=== PATIENT | female | born 1955 | race Caucasian/White ===

== ENCOUNTER 2017-02-14 07:45 | Emergency (ER) | payer OTHER ==
[~2017-02-14] VITALS: Wt 71.0 kg
[~2017-02-14 07:45] MED LIST: LEVO750T25 PO; MELO-109 PO; METR500T PO
[2017-02-14 08:25] LABS: URINE BLOOD (Dip) POC 2+ (NEGATIVE)
[2017-02-14] MEDS ORDERED: KETOROLAC 30 MG INJ IV STA (09:07)
[2017-02-14 09:11] LABS: ADD UMIC YES; URINE BILIRUBIN (Dip) NEGATIVE (NEGATIVE); URINE BLOOD (Dip) 2+ (NEGATIVE); URINE COLOR LT. YELLOW (YELLOW); URINE GLUCOSE (Dip) NEGATIVE (NEGATIVE); URINE KETONES (Dip) NEGATIVE (NEGATIVE); URINE LEUKOCYTE ESTERASE (Dip) 3+ (NEGATIVE); URINE NITRITE (Dip) NEGATIVE (NEGATIVE); URINE TOTAL PROTEIN (Dip) NEGATIVE (NEGATIVE); URINE UROBILINOGEN (Dip) 0.2 E.U./dL (0.1-1.0)
[2017-02-14 09:32] LABS: BACTERIA,URINE FEW
[2017-02-14 09:37] LABS: ADD SCAN DIFF NO
[2017-02-14 09:43] LABS: BASOPHILS % 0.4 % (0.0-2.0); EOSINOPHILS # 0.1 10^3/ul (0.0-0.5); EOSINOPHILS % 1.2 % (0.0-7.0); HEMATOCRIT 41.9 % (37.0-47.0); HEMOGLOBIN 13.7 g/dl (12.0-16.0); LYMPHOCYTES # 2.1 10^3/ul (0.8-2.9); LYMPHOCYTES % 23.2 % (15.0-51.0); MEAN CORPUSCULAR HEMOGLOBIN 28.4 pg (29.0-33.0); MEAN CORPUSCULAR HGB CONC 32.7 g/dl (32.0-37.0); MEAN CORPUSCULAR VOLUME 86.9 fl (82.0-101.0); MEAN PLATELET VOLUME 9.9 fl (7.4-10.4); MONOCYTE # 0.5 10^3/ul (0.3-0.9); MONOCYTES % 5.7 % (0.0-11.0); NEUTROPHIL # 6.4 10^3/ul (1.6-7.5); NEUTROPHILS % 69.2 % (39.0-77.0); PLATELET COUNT 285 10^3/UL (140-415); RED BLOOD COUNT 4.82 10^6/ul (4.20-5.40); RED CELL DISTRIBUTION WIDTH 12.4 % (11.5-14.5); WHITE BLOOD COUNT 9.2 10^3/ul (4.8-10.8)
[2017-02-14 09:53] LABS: ALBUMIN 4.6 g/dl (3.3-4.9)
[2017-02-14 09:54] LABS: POTASSIUM 3.9 mmol/L (3.5-5.1)
[2017-02-14 09:56] LABS: ALBUMIN/GLOBULIN RATIO 1.31; BILIRUBIN,INDIRECT 0.7 mg/dl (0-1.1); BILIRUBIN,TOTAL 0.7 mg/dl (0.2-1.3); CALCIUM 9.4 mg/dl (8.4-10.2); CREATININE 0.71 mg/dl (0.44-1.00); TOTAL PROTEIN 8.1 g/dl (6.1-8.1)
--- NOTE | 2017-02-14 10:41 | RADRPT ---
PROCEDURE: Retroperitoneal US. CLINICAL INDICATION: Flank pain TECHNIQUE: Multiple sonographic images of the kidneys and retroperitoneum were obtained. The imag es were reviewed on a PACS workstation. COMPARISON: 02/07/2016 FINDINGS: The kidneys are normal in size, contour, cortical thickness and cortical echogenicity. The right kidney measures 10.1 cm. The left kidney measures 10.3 cm. No kidney stones are visualized. There is no evidence for hydronephrosis. The urinary bladder is normal. RPTAT: AA IMPRESSION: Unremarkable retroperitoneal ultrasound. .Lex Tena MD, Date Time Electronically viewed and signed by .Lex Tena MD, MD on 02/14/2017 10:41 .S/
[2017-02-14] MEDS ORDERED: CEPH-443 PO (10:53)
[2017-02-14] MEDS ORDERED: IBUP400T22 PO (10:53)
[2017-02-14 10:55] VITALS: BP 143/81; PULSE 64; RESP 20; TEMP 97.9
--- NOTE | 2017-02-14 10:59 | ERD ---
ER Documentation Chief Complaint Date/Time DATE: 02/14/17 TIME: 10:55 Chief Complaint DYSURIA X 3 DAYS, LEFT FLANK PAIN HPI 61-year-old female patient with a past medical history of nephrolithiasis presents to the ED complaining of dysuria that started 3 days ago. States that it feels like a burning sensation when she urinates. Reports that she has some slight suprapubic pain. States that she also has associated left flank pain. States that she was diagnosed with nephrolithiasis a few years ago. Denies any chest pain, shortness of breath, abdominal pain, nausea, vomiting, constipation , diarrhea. Denies any heavy lifting. Denies any saddle anesthesia, urine or bowel incontinence, numbness and tingling. ROS All systems reviewed and are negative except as per history of present illness. Medications Home Meds Active Scripts Ibuprofen* (Motrin*) 400 Mg Tab, 400 MG PO Q6, #30 TAB take with food Prov:KRISTA VENTURA PA-C 02/14/17 Cephalexin* (Keflex*) 500 Mg Capsule, 500 MG PO QID for 7 Days, CAP Prov:KRISTA VENTURA PA-C 02/14/17 Meloxicam* (Meloxicam*) 7.5 Mg Tablet, 7.5 MG PO DAILY, #30 TAB Prov:CLAY REYES PA-C 03/07/16 Metronidazole* (Flagyl*) 500 Mg Tablet, 500 MG PO TID for 10 Days, TAB Prov:LIDA SOLOMON 02/07/16 Levofloxacin* (Levaquin*) 750 Mg Tablet, 750 MG PO DAILY for 10 Days, TAB Prov:LIDA SOLOMON 02/07/16 Allergies Allergies: Coded Allergies: No Known Allergy (Unverified , 03/07/16) PMhx/Soc History of Surgery: Yes (c/section x 2) Anesthesia Reaction: No Hx Neurological Disorder: No Hx Respiratory Disorders: No Hx Cardiac Disorders: No Hx Psychiatric Problems: No Hx Miscellaneous Medical Probl: Yes (HX KIDNEY STONE- 2010, RENAL CYST DX 2012 - NO TREATMENT) Hx Alcohol Use: No Hx Substance Use: No Hx Tobacco Use: No Physical Exam Vitals Vital Signs Date Time Temp Pulse Resp B/P Pulse Ox O2 Delivery O2 Flow Rate FiO2 02/14/17 10:55 97.9 64 20 143/81 99 Room Air 02/14/17 07:47 98.0 67 18 147/77 99 Physical Exam Const: Onu-[id number], well-nourished. In no acute distress. Head: Atraumatic, normocephalic Eyes: Normal Conjunctiva without injection. No purulent discharge. ENT: Normal external ear, nose. Moist oropharynx without tonsillar exudates. Non -erythematous pharynx. Uvula midline. No drooling. No trismus. Neck: No cervical midline tenderness. Full range of motion. No meningismus. No cervical lymphadenopathy. No JVD. Resp: Clear to auscultation bilaterally. No wheezing, rhonchi, rales, or crackles. No accessory muscle use. No retractions. Cardio: Regular rate and rhythm. No murmurs, rubs or gallops. Abd: Soft, nontender, non distended. Normal bowel sounds. No palpable masses. No rebound tenderness. No guarding. Negative McBurney's point. Negative psoas sign. Negative obturator sign. : See exam in MDM. Skin: No petechiae or rashes Back: No midline tenderness. Left CVA tenderness. Ext: No cyanosis, or edema. Neur: Awake and alert. Normal gait. Normal coordination. Psych: Normal Mood and Affect Result Diagram: 02/14/1715 02/14/17 0915 Results 24 hrs Laboratory Tests Test 02/14/17 08:25 02/14/17 08:26 02/14/17 09:15 Bedside Urine pH (LAB) 5.5 Bedside Urine Protein (LAB) Negative Bedside Urine Glucose (UA) Negative Bedside Urine Ketones (LAB) Negative Bedside Urine Blood 2+ Bedside Urine Nitrite (LAB) Negative Bedside Urine Leukocyte Esterase (L 2+ Urine Color LT. YELLOW Urine Clarity CLEAR Urine pH 6.0 Urine Specific Line [place] <=1.005 Urine Ketones NEGATIVE Urine Nitrite NEGATIVE Urine Bilirubin NEGATIVE Urine Urobilinogen 0.2 E.U./dL Urine Leukocyte Esterase 3+ Urine Microscopic RBC 2-5/HPF Urine Microscopic WBC 25-50/HPF Urine Epithelial Cells OCCASIONAL Urine Bacteria FEW Urine Hemoglobin 2+ Urine Glucose NEGATIVE% Urine Total Protein NEGATIVE White Blood Count 9.210^3/ul Red Blood Count 4.8210^6/ul Hemoglobin 13.7g/dl Hematocrit 41.9% Mean Corpuscular Volume 86.9fl Mean Corpuscular Hemoglobin 28.4pg Mean Corpuscular Hemoglobin Concent 32.7g/dl Red Cell Distribution Width 12.4% Platelet Count 41757^3/UL Mean Platelet Volume 9.9fl Neutrophils % 69.2% Lymphocytes % 23.2% Monocytes % 5.7% Eosinophils % 1.2% Basophils % 0.4% Nucleated Red Blood Cells % 0.0/100WBC Neutrophils # 6.410^3/ul Lymphocytes # 2.110^3/ul Monocytes # 0.510^3/ul Eosinophils # 0.110^3/ul Basophils # 0.010^3/ul Nucleated Red Blood Cells # 0.010^3/ul Sodium Level 141mmol/L Potassium Level 3.9mmol/L Chloride Level 101mmol/L Carbon Dioxide Level 27mmol/L Anion Gap 17 Blood Urea Nitrogen 12mg/dl Creatinine 0.71mg/dl Glucose Level 95mg/dl Calcium Level 9.4mg/dl Total Bilirubin 0.7mg/dl Direct Bilirubin 0.00mg/dl Indirect Bilirubin 0.7mg/dl Aspartate Amino Transf (AST/SGOT) 25IU/L Alanine Aminotransferase (ALT/SGPT) 30IU/L Alkaline Phosphatase 63IU/L Total Protein 8.1g/dl Albumin 4.6g/dl Globulin 3.50g/dl Albumin/Globulin Ratio 1.31 Lipase 124U/L Current Medications Medications (Trade) Dose Ordered Sig/Leslie Route PRN Reason Start Time Stop Time Status Last Admin Dose Admin Ketorolac Tromethamine (Toradol) 30 mg ONCE STAT IV 02/14/17 09:07 02/14/17 09:10 DC 02/14/17 09:17 Procedures/[facility] This is a 61-year-old female patient with no significant past medical history presents the ED complaining of left flank pain and dysuria that started 3 days ago. Patient is afebrile and nontoxic-appearing. Patient has normal vital signs. Based on patient's history of nephrolithiasis, a renal ultrasound, CBC, CMP, lipase, UA, urine culture was ordered to further evaluate patient. Patient 's pain was improved after Toradol 30 mg IV. CBC: No leukocytosis. No e/o of systemic infection. No e/o anemia. CMP: No e/o severe acidosis, alkalosis, renal failure, diabetic ketoacidosis, liver disease Lipase within normal limits. Urine: 3+ leukocyte esterase with WBC 25-50, no nitrites, no hematuria. PROCEDURE: Retroperitoneal US. CLINICAL INDICATION: Flank pain TECHNIQUE: Multiple sonographic images of the kidneys and retroperitoneum were obtained. The images were reviewed on a PACS workstation. COMPARISON: 02/07/2016 FINDINGS: The kidneys are normal in size, contour, cortical thickness and cortical echogenicity. The right kidney measures 10.1 cm. The left kidney measures 10.3 cm. No kidney stones are visualized. There is no evidence for hydronephrosis. The urinary bladder is normal. RPTAT: AA IMPRESSION: Unremarkable retroperitoneal ultrasound. Patient likely has a urinary tract infection. Low suspicion for septic renal stone, gastritis, GERD, peptic ulcer disease, cholecystitis, choledocholithiasis , cholangitis, pancreatitis, appendicitis, bowel obstruction, ileus, volvulus, nephrolithiasis, pyelonephritis, hepatitis, perforated viscus, diverticulitis, abdominal hernia, acute abdomen, mesenteric ischemia or other emergent conditions. Discharge medications: Ibuprofen, Keflex Follow up with primary care physician in 1-2 days. Instructed patient to return to the ED sooner for any worsening symptoms. Patient's questions were answered. Patient understood and agreed with discharge plan. Patient discharged stable. Departure Diagnosis: Primary Impression: Dysuria Condition: Stable Patient Instructions: Dysuria, Urinary Tract Infections in Women Referrals: ESE ARBOLEDA MD (PCP) [facility] YOU HAVE RECEIVED A MEDICAL SCREENING EXAM AND THE RESULTS INDICATE THAT YOU DO NOT HAVE A CONDITION THAT REQUIRES URGENT TREATMENT IN THE EMERGENCY DEPARTMENT. FURTHER EVALUATION AND TREATMENT OF YOUR CONDITION CAN WAIT UNTIL YOU ARE SEEN IN YOUR DOCTORS OFFICE WITHIN THE NEXT 1-2 DAYS. IT IS YOUR RESPONSIBILITY TO MAKE AN APPOINTMENT FOR FOLOW-UP CARE. IF YOU HAVE A PRIMARY DOCTOR --you should call your primary doctor and schedule an appointment IF YOU DO NOT HAVE A PRIMARY DOCTOR YOU CAN CALL OUR PHYSICIAN REFERRAL HOTLINE AT IF YOU CAN NOT AFFORD TO SEE A PHYSICIAN YOU CAN CHOSE FROM THE FOLLOWING [facility] [address] [facility]. [facility] [address] [facility]. [facility] [address] [facility] [facility] [address] [facility] [address] [facility]. [facility] [address] [facility]. [facility] YOU HAVE RECEIVED A MEDICAL SCREENING EXAM AND THE RESULTS INDICATE THAT YOU DO NOT HAVE A CONDITION THAT REQUIRES URGENT TREATMENT IN THE EMERGENCY DEPARTMENT. FURTHER EVALUATION AND TREATMENT OF YOUR CONDITION CAN WAIT UNTIL YOU ARE SEEN IN YOUR DOCTORS OFFICE WITHIN THE NEXT 1-2 DAYS. IT IS YOUR RESPONSIBILITY TO MAKE AN APPOINTMENT FOR FOLOW-UP CARE. IF YOU HAVE A PRIMARY DOCTOR --you should call your primary doctor and schedule and appointment IF YOU DO NOT HAVE A PRIMARY DOCTOR YOU CAN CALL OUR PHYSICIAN REFERRAL HOTLINE AT . IF YOU CAN NOT AFFORD TO SEE A PHYSICIAN YOU CAN CHOSE FROM THE FOLLOWING [facility] INSTITUTIONS: [facility] [address] [place] [address] [facility] [address] [place] [address] [facility] [address] [place] [address] [facility] URGENT CARE/SPECIALTIES Additional Instructions: Call your primary care doctor for an appointment during the next 2-3 days.See the doctor sooner or return here if your condition worsens before your appointment time. KRISTA VENTURA PA-C Feb 14, 2017 10:59 Additional Instructions: Call your primary care doctor for an appointment during the next 2-3 days.See the doctor sooner or return here if your condition worsens before your appointment time. KRISTA VENTURA PA-C Feb 14, 2017 10:59
== END 2017-02-14 11:00 | disposition home or self-care (01) ==
LOC: FTE 07:45
DX: R30.0 Dysuria (principal)
CPT/HCPCS: 36415; 76775; 80053; 81001; 83690; 85025; 87086; 96374; J1885; Z7502; 81003

== ENCOUNTER 2017-06-07 14:38 | Emergency (ER) | payer OTHER ==
[~2017-06-07] VITALS: Ht 165.1 cm; Wt 80.5 kg
[~2017-06-07 14:38] MED LIST changes: +CEPH-443 PO; +IBUP400T22 PO
[2017-06-07 14:44] VITALS: Ht 165.1 cm; Wt 80.5 kg
[2017-06-07] MEDS ORDERED: KETOROLAC 60 MG INJ IM STA (15:20)
[2017-06-07] MEDS ORDERED: morphine 10 MG INJ IM ONE (15:30)
[2017-06-07] MEDS ORDERED: HYDR-906 PO (16:20)
[2017-06-07] MEDS ORDERED: NAPR-688 PO (16:20)
[2017-06-07] MEDS ORDERED: ORPH100T PO (16:20)
--- NOTE | 2017-06-07 17:06 | ERD ---
ER Documentation Chief Complaint Date/Time DATE: 06/07/17 TIME: 17:02 Chief Complaint complains of back pain x 3 days HPI This 61-year-old female presents for left lower back pain for last 3 days. She woke with the pain. Hurts most when she has certain movements such as bending over. She has no new trauma. She denies dysuria, fever, chills. She is otherwise healthy. ROS All systems reviewed and are negative except as per history of present illness. Medications Home Meds Active Scripts Hydrocodone/Acetaminophen ([place] 5-325 Tablet) 1 Each Tablet, 1 EACH PO Q6, #20 TAB Prov:GIOVANI RAYGZOA DO 06/07/17 Naproxen* (Naproxen*) 500 Mg Tablet, 500 MG PO BID, #20 TAB Prov:GIOVANI RAYGOZA DO 06/07/17 Orphenadrine Citrate (Norflex) 100 Mg Tablet.sa, 100 MG PO BID for MUSCLE SPASMS , #14 TAB.SA Prov:IDALMISGIOVANISHAVON GARZON 06/07/17 Ibuprofen* (Motrin*) 400 Mg Tab, 400 MG PO Q6, #30 TAB take with food Prov:KRISTA VENTURA PA-C 02/14/17 Cephalexin* (Keflex*) 500 Mg Capsule, 500 MG PO QID for 7 Days, CAP Prov:KRISTA VENTURA PA-C 02/14/17 Meloxicam* (Meloxicam*) 7.5 Mg Tablet, 7.5 MG PO DAILY, #30 TAB Prov:CLAY REYES PA-C 03/07/16 Metronidazole* (Flagyl*) 500 Mg Tablet, 500 MG PO TID for 10 Days, TAB Prov:LIDA SOLOMON 02/07/16 Levofloxacin* (Levaquin*) 750 Mg Tablet, 750 MG PO DAILY for 10 Days, TAB Prov:LIDA SOLOMON 02/07/16 Allergies Allergies: Coded Allergies: No Known Allergy (Unverified , 03/07/16) PMhx/Soc History of Surgery: Yes (c/section x 2) Anesthesia Reaction: No Hx Neurological Disorder: No Hx Respiratory Disorders: No Hx Cardiac Disorders: No Hx Psychiatric Problems: No Hx Miscellaneous Medical Probl: Yes (HX KIDNEY STONE- 2010, RENAL CYST DX 2012 - NO TREATMENT) Hx Alcohol Use: No Hx Substance Use: No Hx Tobacco Use: No Smoking Status: Never smoker Physical Exam Vitals Vital Signs Date Time Temp Pulse Resp B/P Pulse Ox O2 Delivery O2 Flow Rate FiO2 06/07/17 14:44 98.8 83 20 158/67 98 Physical Exam Const: [] No distress Skin: No petechiae or rashes Back: Left lower thoracic and upper lumbar paraspinal muscle spasm with mild tenderness. No midline tenderness Ext: No cyanosis, or edema Neur: Awake and alert oriented 3, no focal deficits Psych: Normal Mood and Affect Results 24 hrs Current Medications Medications (Trade) Dose Ordered Sig/Leslie Route PRN Reason Start Time Stop Time Status Last Admin Dose Admin Ketorolac Tromethamine (Toradol) 60 mg ONCE STAT IM 06/07/17 15:20 06/07/17 15:21 DC 06/07/17 15:41 Morphine Sulfate (morphine) 4 mg ONCE ONCE IM 06/07/17 15:30 06/07/17 15:31 DC 06/07/17 15:41 Procedures/MDM Left-sided back muscle spasm with no trauma. I have low suspicion for any kidney dysfunction. Patient was given morphine and Toradol in the emergency room with intramuscular injection to help the pain greatly. I will discharge her with Norflex, naproxen, [place] and return precautions. Departure Diagnosis: Primary Impression: Spasm of back muscles Condition: Stable Patient Instructions: Back Spasm, No Trauma Additional Instructions: Llame al doctor MAANA y abdelrahman vitaly EVER PARA DENTRO DE 2-3 MARK.Dgale a la secretaria que nosotros le instruimos hacer esta ever.Avise o llame si aleman condicin se empeora antes de la ever. Regresa aqui si peor o no mejor. GIOAVNI RAYGOZA DO Jun 07, 2017 17:06
[2017-06-07 17:19] VITALS: BP 152/71; PULSE 75; RESP 20; TEMP 98.5
== END 2017-06-07 17:20 | disposition home or self-care (01) ==
LOC: FTE 14:38
DX: M62.830 Muscle spasm of back (principal)
CPT/HCPCS: 96372; J1885; J2270; Z7502

== ENCOUNTER 2017-12-21 13:38 | Emergency (ER) | END 2017-12-21 14:11 | disposition home or self-care (01) ==